=== PATIENT | male | born 1955 | race Caucasian/White ===

== ENCOUNTER 2025-02-04 00:53 | Day surgery (SDC) | payer MEDICARE, SELFPAY ==
[2025-01-20 08:20] VITALS: BMI 26.6
--- OUTSIDE RECORDS SUMMARY | 2025-02-04 00:55 | XMS_ITS | Clinical Summary ---
Author Organization [facility] Address [address] [place] [id number] Care Team Providers Care Operations Recruiter Name Role Phone Unavailable Primary Care Provider Unavailabl e Social History Tobacco Use Types Packs/Day Years Used Date Smoking Tobacco: Never Assessed Sex and Gender Information Value Date Recorded Sex Assigned at Not on file Legal Sex Male 4:29 PM CDT Gender Identity Not on file Sexual Orientation Not on file Last Filed Vital Signs Vital Sign Reading Time Taken Comments Blood Pressure 120/80 09/19/2016 2:39 PM FIELD OPERATIONS MANAGER Pulse 68 08/23/2016 11:21 AM FIELD OPERATIONS MANAGER Temperature - - Respiratory Rate - - Oxygen Saturation - - Inhaled Oxygen Concentration - - Weight 94.3 kg (208 lb) 09/19/2016 2:37 PM FIELD OPERATIONS MANAGER Height 172.7 cm (5' 8) 09/19/2016 2:37 PM FIELD OPERATIONS MANAGER Body Mass Index 31.63 09/19/2016 2:37 PM FIELD OPERATIONS MANAGER Plan of Treatment Health Maintenance Due Date Last Done Comments Hepatitis C 1971 Pneumococcal Vaccine: 50+ Years (1 of 1 - PCV) 2003 Zoster Vaccines (1 of 2) 2003 DTaP, Tdap and Td Vaccines ( 2 - Td or Tdap) 02/09/2020 02/08/2010, 04/15/1999 COVID-19 Vaccine ( - 2023-2 5 season) 2024 Colorectal Cancer Screening Colonoscopy (10 Years) 07/07/2024 07/07/2014 RSV Immunization or 60+ Years (1 - 1-dose 75+ series) 2028 Meningococcal B Vaccine Aged Out No l onger eligible based on patient's age to complete this topic Meningococcal Vaccine Aged Out No jose tl eligible based on patient's age to complete this topic RSV Immunizations Under 20 Months Aged Out No longer eligible b ased on patient's age to complete this topic Procedures Procedure Name Priority Date/Time Associated Diagnosis Comments COLONOSCOPY Routine 07/07/2014 12:00 AM FIELD OPERATIONS MANAGER from Last 3 Months or Most Recently Relevant to Health Maintenance Results * Colonoscopy (07/07/2014 12:00 AM FIELD OPERATIONS MANAGER) 07/07/2014 07/07/2014 Narrative TOUCHWORKS TO EPIC CONVERSION - 07/07/2014 12:00 AM FIELD OPERATIONS MANAGER Documented hx of procedure Procedure Note , Generic Conversion, - 10/18/2018 Documented hx of procedure Generic Conversion Md [facility] PROCEDURE ORDERABLES Final Result TOUCHWORKS TO EPIC CONVERSION from Last 3 Months or Most Recently Relevant to Health Maintenance Advance Directives Documents on File Type Date Recorded Patient Practice Physician Expl anation Advance Directives and Living Will 07/26/2014 SADVANCE DIRECTIVES
--- OUTSIDE RECORDS SUMMARY | 2025-02-04 00:55 | XMS_ITS | Clinical Summary ---
Author Organization [employer] Address [address] [facility] Attn: Epic Prelude [place]T [place] ISSA [id number] Care Team Providers Care Hazmat Tanker Driver Name Role Phone Unavailable Primary Care Provider Unavailabl e Social History Tobacco Use Types Packs/Day Years Used Date Smoking Tobacco: Never Assessed Sex and Gender Information Value Date Recorded Sex Assigned at Not on file Legal Sex Male 3:16 AM FIRE PREVENTION ENGINEER Gender Identity Not on file Sexual Orientation Not on file Plan of Treatment Health Maintenance Due Date Last Done Comments DTAP/TDAP/TD VACCINES (1 - Tdap) 1972 COLORECTAL SCREENING 1998 Colorectal Cancer Screening 1998 FIT-DNA Q 3 years 1998 FIT/FOBT Q 1 year 1998 Flex Sig/CT Colonography Q 5 years 1998 PNEUMOCOCCAL VACCINE 50+ YEARS (1 of 1 - PCV) 06/29/20 03 ZOSTER VACCINE (1 of 2) 2003 INFLUENZA VACCINE (#1) 2025 RSV VACCINE (60+ or ) (1 - 1-dose 75+ series) 2028
--- OUTSIDE RECORDS SUMMARY | 2025-02-04 00:55 | XMS_ITS | Encounter Summary ---
Author Organization [employer] Address [address] [place] [address] Care Team Providers Care Pneumatic Drum Sander Name Role Phone Unavailable Primary Care Provider Unavailabl e Encounter Details Date Type Department Care Team (Late st Contact Info) Description 12/24/1998 Outpatient Historical HIS PSYCH PARTIAL Abhishek Chopra MD [facility] [address] [address] Major depressive disorder, single episode, unspecified (Primary Dx) Social History Tobacco Use Types Packs/Day Years Used Date Smoking Tobacco: Never Assessed Sex and Gender Information Value Date Recorded Sex Assigned at Not on file Legal Sex Male 3:16 AM PLATE CONDITIONER Gender Identity Not on file Sexual Orientation Not on file documented as of this encounter Plan of Treatment Not on file documented as of this encounter Visit Diagnoses Diagnosis Major depressive disorder, single episode, unspecified- Primary documented in this encounter
--- OUTSIDE RECORDS SUMMARY | 2025-02-04 00:55 | XMS_ITS | Encounter Summary ---
Author Organization [facility] Address [address] [place] [address] Care Team Providers Care Panel Machine Tender Name Role Phone Unavailable Primary Care Provider Unavailabl e Encounter Details Date Type Department Care Team (Late st Contact Info) Description 12/23/1998 Inpatient Historical HIS PATIENT IN A BED Abhishek Henry MD [address] [address] Major depressive disorder, single episode, unspecified (Primary Dx) Social History Tobacco Use Types Packs/Day Years Used Date Smoking Tobacco: Never Assessed Sex and Gender Information Value Date Recorded Sex Assigned at Not on file Legal Sex Male 3:16 AM AIRLINE TRANSPORT PILOT Gender Identity Not on file Sexual Orientation Not on file documented as of this encounter Plan of Treatment Not on file documented as of this encounter Visit Diagnoses Diagnosis Major depressive disorder, single episode, unspecified- Primary documented in this encounter
--- OUTSIDE RECORDS SUMMARY | 2025-02-04 00:55 | XMS_ITS | Clinical Summary ---
Author Organization [facility] Address [address] [place] [address] Care Team Providers Care Immigration Lawyer Name Role Phone Gwen Hartman MD Primary Care Provider Abhishek Loomis MD Unavailable [phone] Allergies No known active allergies Medications atorvastatin (LIPITOR) 20 mg tablet TK 1 T PO QD HS [address] (CYMBALTA) 60 mg capsule TK ONE C PO QD 1 8 Active lamoTRIgine (LaMICtal) 200 mg tablet TK 1 T PO QHS 1 8 Active levothyroxine (SYNTHROID, LEVOTHROID) 50 mcg tablet TK 1 T PO QD 3 8 Active risperiDONE (RisperDAL) 3 mg tablet 3 mg 2 (two) times a day 1 8 Active lithium 300 mg tablet/capsule Take 300 mg by mouth 2 (two) times a day with meals Active miscellaneous medical supply miscIndications :Incomplete bladder emptying 14 Fr Interm catheters mentor/coloplast 450. Patient to catheterize 4 x a day indefinitely 120 each 11 2 Active Active Problems Problem Noted Date Diagnosed Date Tremor 08/30/2021 Assessment & Plan (09/12/2021 6:28 PM LIBRARY TECHNICIAN): NEUROPSYCHOLOGICAL EVALUATION: INTERPRETATION (for Assessment and Plan, see further below) Normal cognitive performance on MoCA. No evidence of depression on GDS; No evidence of depression on HADS. No evidence of anxiety on HADS. No evidence of daytime drowsiness on Jarbidge scale. No evidence of REM Behavior Disorder (RBD) on Stiasny-Kolster scale. These scores establish a baseline for potential future reference and do not require a change in current plan. ASSESSMENT - 66 y.o. man with bipolar disorder on stable dose of risperidone who has been experiencing, for several years (estimated onset around 2016) of rest tremor in his limbs and in his jaw. - The examination revealed moderate generalized parkinsonism that was almost entirely bilateral and quite symmetric, including bilateral rest tremor of both hands and both legs, symmetric limb rigidity, mild symmetric hypokinesia of rapid movements, and mildly slow gait with bilaterally reduced arm swing. The only unilateral sign was a palmomental reflex, present only on the left. The motor UPDRS score today was 26 in Jul 2021 on risperidone 6 mg. 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 In favor of this are the symmetric nature of symptoms and the risperidone dose easily sufficient to cause them. Against this is the appearance of symptoms without a clear time relationship to a dose increase. However, aging can gradually decrease the threshold of a drug's side effects. If this is a diagnosis, gradually reducing (slowly, over the course of 8 weeks to minimize the risk of triggering a tardive syndrome) and then stopping risperidone should lead to full symptom resolution within 8 weeks or so. If needed, an acceptable replacement could be quetiapine or clozapine, as these neuroleptics do not cause parkinsonism (for clozapine, if below 300 mg a day). - The other major possibility is Parkinson's disease. The unilateral presence of a palmomental reflex is the only element of the syndrome that would argue for asymmetry and thus somewhat support PD over drug-induced parkinsonism. It would be unusual for PD to begin quite so symmetrically. If this is the diagnosis, treatment options would be limited unless risperidone could be replaced by quetiapine or clozapine (below 300 mg a day). If the neuroleptic was not one of these drugs, D2 dopamine receptors would be blocked and most medications for PD would not be effective. - Finally, risperidone may be unmasking incipient Parkinson's disease. In this case, removing risperidone could reduce motor symptoms, but they would eventually return and progress. - Falls: no falls PLAN (phrased as addressed to the patient): - As we discussed, you have parkinsonism, meaning tremor and other motor manifestations that we call parkinsonism. The cause could be risperidone, or Parkinson's disease, or both. - I need to find out from your psychiatrist, Dr. Abhishek Loomis, whether you can do without risperidone, either by gradually reducing it over the course of 8 weeks or so, and stopping it, or by also introducing a replacement, i.e. quetiapine or clozapine. - If this is not possible, it would still be worthwhile to try a reduction of risperidone. - Even if your tremor is caused by risperidone and improves after stopping this medication, there is a chance that Parkinson's disease is present and may cause continued symptoms or the return of symptoms in the future. - Should you and Dr. Loomis decide that your tremor is tolerable and you would like to make no changes at this time, the plan I am suggesting can be safely postponed until the day, if that day comes, when your symptoms start bothering or your balance become impaired. - If you do not hear from me or Dr. Loomis with further instructions in 3 weeks, contact my office. This encounter's total eocw-fw-rreh time was greater than 60 minutes. I spent more than 50% of this time in counseling and/or coordination of care as documented in the note. The patient visit started at 912 and ended at 1021. Greater than 50% of the visit was spent on counseling and coordinating care. Patient was counseled on rationale for considering replacement of risperidone with quetiapine. NOTE: The present note includes, below, the line Ambulatory referral to Neurology. This statement is included as a mandatory component of the note template that I do not have the ability to remove. This statement has no clinical significance. I am NOT ordering a referral to Neurology. 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 (Added by TW Conv) Medical History Medical History Date Comments Personal history of other en docrine, nutritional and metabolic disease History of hypothyro idism - (Added by TW Conv) Personal history of other en docrine, nutritional and metabolic disease History of hyperchol esterolemia - (Added by TW Conv) Personal history of other me ntal and behavioral disorders History of bipolar disorder - (Added by TW Conv) Personal history of other me ntal and behavioral disorders History of depression - (Add ed by TW Conv) Bipolar affective disorder (HCC) Dyslipidemia Hypothyroidism Neurogenic bladder Pre-diabetes Heart murmur Family History Medical History Relation Name Comments Parkinsonism Brother 3 Rafael Tourette syndrome Brother 3 Rafael bladder problems Brother 4 Arturo Car Accident Brother 5 Jaime Heart disease Father Tenzin Heart disease Mother Mable Stroke Mother Mable Melanoma Other Family history of melanoma - (Added by TW Conv) Cancer Sister 1 Efren Intellectual Disability Sister 2 Kathie Rojas Relation Name Status Comments Brother 1 Ervin Alive Brother 2 Abhishek Alive Brother 3 Rafael Alive Brother 4 Arturo Alive Brother 5 Jaime Daughter Linda Alive Father Tenzin (Age 92) Mother Mable (Age 87) Other Sister 1 Efren Alive Sister 2 Kathie Rojas Alive Sister 3 Teresa Alive Sister 4 Maureen Alive Sister 5 Kyara Alive Sister 6 Janet Alive Sister 7 Cristin Alive Son 1 Maurice Alive Son 2 Bryn Alive Social History Tobacco Use Types Packs/Day Years Used Date Smoking Tobacco: Former Sex and Gender Information Value Date Recorded Sex Assigned at Not on file Legal Sex Male 8:41 PM LIBRARY TECHNICIAN Gender Identity Not on file Sexual Orientation Not on file Occupation Industry Job Start Date Job End Date Retired Not on file Not on file Not on 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; 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 Not on file Not on file Not on file Obstetrics History Last Filed Vital Signs Vital Sign Reading Time Taken Comments Blood Pressure 127/70 08/30/2021 8:43 AM LIBRARY TECHNICIAN Pulse 62 08/30/2021 8:43 AM LIBRARY TECHNICIAN Temperature 36.5 C (97.7 F) 08/30/2021 8:43 AM LIBRARY TECHNICIAN Respiratory Rate - - Oxygen Saturation - - Inhaled Oxygen Concentration - - Weight 86.2 kg (190 lb) 08/30/2021 8:43 AM LIBRARY TECHNICIAN Height 171.5 cm (5' 7.5) 08/30/2021 8:43 AM LIBRARY TECHNICIAN Body Mass Index 29.32 08/30/2021 8:43 AM LIBRARY TECHNICIAN Plan of Treatment Health Maintenance Due Date Last Done Comments Colon Cancer Screening-Colonoscopy 1953 Fall Risk Assessment 1953 Hepatitis C Screening 1953 DTaP/Tdap/Td Vaccine (1 - Tdap) 1964 Hepatitis B Screening 1971 Zoster Vaccine (1 of 2) 2003 Abdominal Aortic Aneurysm (A AA) Screen 2018 Well Visit 65+ 2018 Pneumococcal vaccine 65+ (2 of 2 - PPSV23) 02/21/2020 02/20/2019 Depression Screening 08/30/2022 08/30/2021 Influenza Vaccine (#1) 2025 9, 05/02/2018, 04/21/2017 Prostate Cancer Screening-PSA Discontinued , 04/07/2021, 03/19/2020, Additional history exists Procedures Procedure Name Priority Date/Time Associated Diagnosis Comments PSA SCREEN Routine 03/30/2022 8:45 AM CDT Screening PSA (prostate specific antigen) from Last 3 Months or Most Recently Relevant to Health Maintenance Results * PSA screen (03/30/2022 8:45 AM CDT) PSA 1.42 < OR = 4.00 ng/mL [facility] Comment: The total PSA value from this assay system is standardized against the WHO standard. The test result will be approximately 20% lower when compared to the equimolar-standardized total PSA (Damian Riki). Comparison of serial PSA results should be interpreted with this fact in mind. This test was performed using the Siemens chemiluminescent method. Values obtained from different assay methods cannot be used interchangeably. PSA levels, regardless of value, should not be interpreted as absolute evidence of the presence or absence of disease. Blood specimen (specimen) 03/30/2022 8:45 AM CDT 03/30/2022 8:45 AM CDT [facility] BLOOD ORDERABLES Final Result [facility] [id number] [place] [address] from Last 3 Months or Most Recently Relevant to Health Maintenance Insurance [employer] MEDICARE [employer] HMO MEDICARE Care Teams Immigration Lawyer Relationship Specialty Start Date End Date Gwen Hartman MD PCP - General Family Practice 01/25/19 Abhishek Loomis MD [address] [facility] [address] [place] [address] Consulting Physician Psychiatry 08/30/21
--- OUTSIDE RECORDS SUMMARY | 2025-02-04 00:55 | XMS_ITS | Referral Summary ---
Author Organization [facility] Address [address] [place] [address] Care Team Providers Care Technical Engineer Name Role Phone Gwen Hartman MD Primary Care Provider Abhishek Loomis MD Unavailable [phone] Allergies No known active allergies Medications [...] 08/30/2021 Assessment & Plan (09/12/2021 6:28 PM ROOM ATTENDANT): NEUROPSYCHOLOGICAL EVALUATION: INTERPRETATION (for Assessment and Plan, see further below) Normal cognitive performance on MoCA. No evidence of depression on GDS; No evidence of depression on HADS. No evidence of anxiety on HADS. No evidence of daytime drowsiness on Chilton scale. No evidence of REM Behavior Disorder [...] weeks, contact my office. This encounter's total oukb-rs-ocjs time was greater than 60 minutes. 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 Not on file Not on file Not on file Last Filed Vital Signs Vital Sign Reading Time Taken Comments Blood Pressure 127/70 08/30/2021 8:43 AM ROOM ATTENDANT Pulse 62 08/30/2021 8:43 AM ROOM ATTENDANT Temperature 36.5 C (97.7 F) 08/30/2021 8:43 AM ROOM ATTENDANT Respiratory Rate - - Oxygen Saturation - - Inhaled Oxygen Concentration - - Weight 86.2 kg (190 lb) 08/30/2021 8:43 AM ROOM ATTENDANT Height 171.5 cm (5' 7.5) 08/30/2021 8:43 AM ROOM ATTENDANT Body Mass Index 29.32 08/30/2021 8:43 AM ROOM ATTENDANT Plan of Treatment Not on file Procedures Procedure Name Priority Date/Time Associated Diagnosis Comments PSA SCREEN Routine 03/30/2022 8:45 AM CDT Screening PSA (prostate specific antigen) from Last 3 Months or Most Recently Relevant to Health Maintenance Results * PSA screen (03/30/2022 8:45 AM CDT) PSA 1.42 < OR = 4.00 ng/mL [facility] Comment: The total PSA value from [...] 8:45 AM CDT 03/30/2022 8:45 AM CDT [facility] BLOOD ORDERABLES Final Result [facility] [id number] [place] [id number] from Last 3 Months or Most Recently Relevant to Health Maintenance Insurance [employer] MEDICARE [employer] HMO MEDICARE Care Teams Technical Engineer Relationship Specialty Start Date End Date Gwen Hartman MD PCP - General Family Practice 01/25/19 Abhishek Loomis MD [address] [facility] [address] [place] [address] Consulting Physician Psychiatry 08/30/21
[2025-02-04 07:42] VITALS: BP 119/79; PULSE 84; RESP 18; TEMP 36.6; O2SAT 99
--- NOTE | 2025-02-04 07:47 | WPDANESEPPF ---
Anes - Initial Pre Proc Eval Procedure: Operation Date: 02/04/25 09:00 Proposed Procedures p Screening Colonoscopy - Mukesh Shirley DO Date/Time: 02/04/25 07:47 Surgeon: Mukesh Shirley DO Pre Op Diagnosis: Neoplasm screening Patient Data Age: 69 Gender: M Height: 1.7 m Weight: 76.5 kg Last Vital Signs Temp 97.8 F 02/04/25 07:42 Pulse 84 02/04/25 07:42 Resp 18 02/04/25 07:42 BP 119/79 02/04/25 07:42 Pulse Ox 99 02/04/25 07:42 O2 Del Method Room Air 02/04/25 07:42 Allergies Allergy/AdvReac Type Severity Reaction Status Date / Time No Known Allergies Allergy Verified 02/04/25 07:34 Home Medications ?Medication ?Instructions ?Recorded ?Confirmed ?Type duloxetine 60 mg capsule,delayed 60 mg PO DAILY 05/21/20 01/20/25 History release lamotrigine 200 mg tablet 200 mg PO DAILY 05/21/20 01/20/25 History risperidone 3 mg tablet 1.5 mg PO BID 05/21/20 01/20/25 History melatonin 3 mg capsule 3 mg PO QHS 11/22/21 01/20/25 History smggxcnnnthl-uet-gpxkb acid-vit 1 tablet PO DAILY 06/13/22 01/20/25 History K-lycop 400 mcg-20 mcg-370 mcg tablet (Men's 50 Plus Multivitamin) levothyroxine 50 mcg tablet 50 mcg PO DAILY #90 tabs 08/14/24 01/20/25 Rx atorvastatin 20 mg tablet 20 mg PO QHS #90 tabs 12/25/24 01/20/25 Rx lithium carbonate 300 mg 300 mg PO DAILY 01/06/25 01/20/25 History tablet,extended release Patient hx anesthesia problems: none Family hx anesthesia problems: none Results Review: All pre-operative results and documents have been reviewed as part of the pre-operative evaluation. [facility] Past Medical History Medical History Heart murmur Pre-diabetes Bipolar depression Neurogenic bladder Dyslipidemia Hypothyroidism Surgical History Surgical History History of surgery on lower extremity (~1971) RT femur fracture ORIF Family History Family History Mother Cerebrovascular accident Other Family history of coronary artery disease Social History Social History Smoking packs per day: 0.5 Smoking cigarettes per day: 10.0 Years smoked: 5 Smoking pack-years: 2.50 Smoking status: Former smoker Tobacco type: cigarettes Second hand tobacco smoke exposure: No Smoking end date: 07/31/99 Alcohol intake: never Substance use: never Substance use type: does not use Lack of Transportation: No Lack of Food: Never True Current Housing: I Have Housing Concerned About Future Housing: No Difficulty Paying Gas/Electric Bills: No Difficulty Paying for Meds: No Currently Unemployed: No Education: Master's Degree or Higher Difficulty w/ Childcare or Family Care: No Living arrangements: with family Occupation/Education: retired Spiritual care concerns: No Anes - Eval Final PreProcedure Day of Procedure 02/04/25 07:47 Patient weight: normal Lungs: normal air movement Airway: Mallampati scale class II Neurological: alert and oriented Last oral intake: >/= 8 hours ASA classification: II Emergent: no Anesthetic plan: proceed Anesthesia type and monitoring: general GIVS and standard monitoring Results Review: All pre-operative results and documents have been reviewed as part of the pre-operative evaluation. Hypothyroidism, hyperlipidemia, pt active w stationary bike 40 min most days, no cp or sob. Informed Consent: The patient's anesthetic plan and its attendant risks and benefits were discussed with the patient/family/POA. Questions were solicited and answers provided to the satisfaction of the patient/family/POA.
[2025-02-04] MEDS: LACTATED RINGERS 1,000 ML 150 ML IV CONT (07:57)
--- NOTE | 2025-02-04 08:53 | PM.IMHP ---
H&P: HPI History of Present Illness Date/Time: 02/04/25 08:53 Chief Complaint: screening for colorectal cancer Narrative: this is a 69-year-old man who presents for colonoscopy. His last colonoscopy was 10 years ago and was normal. He denies any family history of colon cancer. Review of Systems Review of Systems: All systems reviewed & are unremarkable except as noted in HPI and below Constitutional: Constitutional: Denies chills, Denies fever(s), Denies headache(s) and Denies weight loss Eyes: Eyes: Denies change in vision ENT: Denies dizziness, Denies headache(s), Denies neck mass and Denies throat swelling Cardiovascular: Cardiovascular: Denies chest pain, Denies lightheadedness and Denies dyspnea Respiratory: Respiratory: Denies cough, Denies dyspnea and Denies wheezing Gastrointestinal: Gastrointestinal: Denies abdominal pain, Denies change in bowel habits, Denies nausea and Denies vomiting Genitourinary: Genitourinary: Denies hematuria and Denies dysuria Musculoskeletal: Musculoskeletal: Reports as per HPI Integumentary/Breasts: Skin/Breast: Reports as per HPI Neurologic: Denies dizziness and Denies headache(s) Allergic/Immunologic: Allergic/Immunologic: Denies throat swelling and Denies wheezing PMFSH Past Medical History Medical History Heart murmur Pre-diabetes Bipolar depression Neurogenic bladder Dyslipidemia Hypothyroidism Surgical History Surgical History History of surgery on lower extremity (~1970) RT femur fracture ORIF Family History Family History Mother Cerebrovascular accident Other Family history of coronary artery disease Social History Social History Smoking packs per day: 0.5 Smoking cigarettes per day: 10.0 Years smoked: 5 Smoking pack-years: 2.50 Smoking status: Former smoker Tobacco type: cigarettes Second hand tobacco smoke exposure: No Smoking end date: 07/31/99 Alcohol intake: never Substance use: never Substance use type: does not use Lack of Transportation: No Lack of Food: Never True Current Housing: I Have Housing Concerned About Future Housing: No Difficulty Paying Gas/Electric Bills: No Difficulty Paying for Meds: No Currently Unemployed: No Education: Master's Degree or Higher Difficulty w/ Childcare or Family Care: No Living arrangements: with family Occupation/Education: retired Spiritual care concerns: No Meds Home Medications and Allergies Home Medications ?Medication ?Instructions ?Recorded ?Confirmed ?Type duloxetine 60 mg capsule,delayed 60 mg PO DAILY 05/21/20 01/20/25 History release lamotrigine 200 mg tablet 200 mg PO DAILY 05/21/20 01/20/25 History risperidone 3 mg tablet 1.5 mg PO BID 05/21/20 01/20/25 History melatonin 3 mg capsule 3 mg PO QHS 11/22/21 01/20/25 History ptyporkofsjk-cds-ihkkl acid-vit 1 tablet PO DAILY 06/13/22 01/20/25 History K-lycop 400 mcg-20 mcg-370 mcg tablet (Men's 50 Plus Multivitamin) levothyroxine 50 mcg tablet 50 mcg PO DAILY #90 tabs 08/14/24 01/20/25 Rx atorvastatin 20 mg tablet 20 mg PO QHS #90 tabs 12/25/24 01/20/25 Rx lithium carbonate 300 mg 300 mg PO DAILY 01/06/25 01/20/25 History tablet,extended release Allergies Allergy/AdvReac Type Severity Reaction Status Date / Time No Known Allergies Allergy Verified 02/04/25 07:34 Vital Signs Vital Signs - 24 hr 02/04/25 07:42 Temperature 97.8 F Pulse Rate 84 Respiratory Rate 18 Blood Pressure 119/79 Pulse Oximetry 99 Oxygen Delivery Room Air Exam Const: General: no acute distress and alert Orientation/consciousness: patient oriented x3 HENMT: Head: normocephalic and atraumatic Ears: hearing grossly normal bilaterally Face/Nose/Sinus: Normal nares present Mouth: Yes Normal oral and palatal mucosa present Eyes: Periorbital: periorbital findings normal Sclera: sclerae normal EOM: EOMs intact bilaterally Neck: Neck: normal visual inspection, no lymphadenopathy and trachea midline Chest: Chest palpation & inspection: normal inspection of the chest Resp: Effort & Inspection: normal respiratory effort Auscultation: clear to auscultation bilaterally Cardio: Jugular venous distension: no JVD Rate: regular rate Rhythm: regular rhythm Heart sounds: S1 normal heart sound present and S2 normal heart sound present Peripheral pulses: Peripheral pulses 2+ throughout GI: Inspection: normal to inspection GI Palp: Yes Soft to palpation, No Tenderness to palpation present (GI), No Guarding due to palpation present (GI) and No Rebound tenderness present Percussion: Yes normal to percussion Auscultation: normal bowel sounds : General: Yes no CVA tenderness Back/Spine/Pelvis: Back: no CVA tenderness Neuro: General: patient oriented x3, no focal motor deficits and CN's II-XI intact bilaterally Cognition (Neuro): normal cognition Speech: normal speech Motor exam (neuro): 5/5 motor strength present throughout Extrem: General: capillary refill normal and no clubbing, cyanosis or edema Assessment and Plan Assessment and plan (1) Screening for colorectal cancer: Code(s): Z12.11 - Encounter for screening for malignant neoplasm of colon; Z12.12 - Encounter for screening for malignant neoplasm of rectum Status: Acute Assessment and Plan: I have recommended colonoscopy. I have discussed the procedure, risks, benefits, and alternatives. Questions were answered. Patient is agreeable to proceed.
--- NOTE | 2025-02-04 09:23 | S_PTH ---
PATIENT: Roger Scott LOC: [facility] U#:[id number] AGE/SX: 69/M ROOM: RE02/04/[address]: Mukesh Shirley DO : 1955 BED: DIS: 02/04/2025 SPEC #: [id number] RECD: 02/04/25 10:50 STATUS: COOKIE RENoe #: [id number] BEN: 02/04/25 09:[address]: Mukesh Shirley DEPT: [facility] Surgical RECD BY: Ayan Abrams ENTERED: 02/04/25 10:50 SP TYPE: Surgical OTHR DR: Gwen Hartman MD Tissues: A - Colon Polypectomy Procedures: Hematoxylin and Eosin Stain Gross and Microscopic Level 4
[2025-02-04 09:27] VITALS: BP 100/64; PULSE 61; RESP 13; O2SAT 98
[2025-02-04 09:37] VITALS: BP 110/67; PULSE 67; RESP 20; O2SAT 99
[2025-02-04 09:47] VITALS: BP 115/75; PULSE 64; RESP 22; O2SAT 100
== END 2025-02-04 09:59 | disposition home or self-care (01) ==
PROVIDERS: PCP Family Medicine; Visit Provider Surgery
PROC: 0DJD8ZZ Inspection of Lower Intestinal Tract, Via Natural or Artificial Opening Endoscopic (ICD-10-PCS; CPT 45378; principal; 2025-02-04 09:00)
DX: Z12.11 Encounter for screening for malignant neoplasm of colon (principal); D12.3 Benign neoplasm of transverse colon; K57.30 Diverticulosis of large intestine without perforation or abscess without bleeding; R01.1 Cardiac murmur, unspecified; R73.03 Prediabetes; F31.9 Bipolar disorder, unspecified; N31.9 Neuromuscular dysfunction of bladder, unspecified; E78.5 Hyperlipidemia, unspecified; E03.9 Hypothyroidism, unspecified; Z98.890 Other specified postprocedural states; Z87.891 Personal history of nicotine dependence; Z82.49 Family history of ischemic heart disease and other diseases of the circulatory system
CPT/HCPCS: 45385; 88305; J2003; J2704; J7120

== ENCOUNTER 2025-07-14 09:58 | Outpatient (CLI) | payer MEDICARE, SELFPAY ==
[2025-07-14 11:26] LABS: Alanine Aminotransferase 22 U/L (6-50); Albumin Level 4.3 g/dL (3.5-5.1); Alkaline Phosphatase 80 U/L (38-126); Anion Gap 5 mmol/L (4-12); Aspartate Amino Transferase 35 U/L (17-59); Bilirubin,Total 0.4 mg/dL (0.2-1.3); Blood Urea Nitrogen 13 mg/dL (9-20); Calcium 9.7 mg/dL (8.4-10.2); Carbon Dioxide 26 mmol/L (22-30); Chloride 107 mmol/L (98-107); Estimated Glomerular Filt Rate 56; Glucose 92 mg/dL (65-110); Potassium 4.1 mmol/L (3.4-5.0); Sodium 138 mmol/L (137-145); Total Protein 7.4 g/dL (6.3-8.2)
[2025-07-14 11:53] LABS: Thyroid Stimulating Hormone Reflex 1.150 uIU/mL (0.465-4.68)
[2025-07-14 12:14] LABS: Hemoglobin A1C 5.4 % (<5.7)
== END 2025-07-14 09:59 | disposition home or self-care (01) ==
LOC: ANHGOSHLAB 09:59
PROVIDERS: PCP Family Medicine; Visit Provider Family Medicine
DX: E03.9 Hypothyroidism, unspecified (principal); R73.03 Prediabetes; I10 Essential (primary) hypertension
CPT/HCPCS: 36415; 80053; 83036; 84443